=== PATIENT | male | born 1955 ===

== ENCOUNTER 2025-01-06 09:00 | Day surgery (SDC) | payer OTHER ==
[2024-12-30 14:00] VITALS: BP 140/80
[~2025-01-06] VITALS: Ht 157.5 cm; Wt 54.4 kg
[~2025-01-06 09:00] MED LIST: COZAAR50 MG PO; EZALLOR SPRINKL20 MG PO; PROSCAR5 MG PO
[2025-01-06] MEDS ORDERED: CEFTRIAXONE SODIUM 2,000 MG VIAL ONE (10:08)
[2025-01-06] MEDS ORDERED: METRONIDAZOLE/SODIUM CHLORIDE 500 MG/100 ML PIGGYBACK IV ONE (10:08)
[2025-01-06] MEDS ORDERED: HEMOSTATIC MATRIX 1 KIT KIT TOP ONE (10:47)
[2025-01-06] MEDS ORDERED: BUPIVACAINE HCL/MPF 0.5% 30ML VIAL ONE (10:48)
[2025-01-06] MEDS ORDERED: LIDOCAINE HCL 1%/EPINEPHRINE 20ML VIAL IJ ONE (10:48)
[2025-01-06] MEDS ORDERED: POVIDONE-IODINE 118 ML BOTT TOP ONE (10:48)
[2025-01-06] MEDS ORDERED: DIBUCAINE 30 GM TUBE ONE (10:48)
[2025-01-06] MEDS ORDERED: PERCOCET 5-3251 EACH PO (12:29)
[2025-01-06] MEDS ORDERED: RECTICARE30 GM TOP (12:30)
== END 2025-01-06 17:15 | disposition home or self-care (01) ==
LOC: CIR.AMB 09:00
PROVIDERS: ATTEND Surgery
DX: D12.9 Benign neoplasm of anus and anal canal (principal); D12.8 Benign neoplasm of rectum; R19.5 Other fecal abnormalities